=== PATIENT | male | born 1935 | race Caucasian/White ===

== ENCOUNTER → 2016-10-09 | Outpatient (CLI) | payer OTHER ==
--- NOTE | 2016-10-09 16:40 | DX ---
Chest, PA and Lateral History: Follow-up interstitial lung disease, J84.9 Comparison: October 14, 2014 Findings: Bilateral calcified pleural plaques and basilar interstitial lung disease remains, little c hanged.The costophrenic gutters remain sharp. Moderately prominent lung volumes and perihilar bronchi al wall thickening are stable. There is no mass or adenopathy. Heart size remains normal. A calcified lymph node in the left mediastinum is stable and consistent with old granulomatous disease. Degenera tive spurring in the mid and lower thoracic spine is stable. 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 No evidence for mesothelioma .
== END ==
LOC: CIMAGING 11:31
PROVIDERS: ATTEND Internal Medicine Critical Care Medicine
DX: J84.89 Other specified interstitial pulmonary diseases (principal)
CPT/HCPCS: 71020-PO

== ENCOUNTER → 2017-10-24 | Outpatient (CLI) | payer OTHER | LOC: CIMAGING 10:18 | PROVIDERS: ATTEND Internal Medicine Critical Care Medicine | DX: Z13.83 Encounter for screening for respiratory disorder NEC (principal) | CPT/HCPCS: 71046-PO ==

== ENCOUNTER 2018-02-17 11:53 | Inpatient (IN) | payer OTHER ==
[2018-02-17] MEDS ORDERED: NS 1,000 ML IV ONE (12:31)
--- NOTE | 2018-02-17 12:45 | EDPHY ---
HPI/HX/ROS/PE/MDM Narrative: CHIEF COMPLAINT: Dark tarry stool. HPI: This patient is a non-anticoagulated 82 year-old male with history of COPD. He arrives at the request of his primary care provider for evaluation of possible melena. Friday, the patient felt boated after a large meal. Yesterday afternoon around 16:00, he began to feel weak. At 22:00, he had a bowel movement with dark , tarry stools. He has had a pressure sensation in his lower abdomen which began shortly before he went to the bathroom last night. He denies any pain. No vomiting. No history of abdominal surgery. The patient takes daily 81mg ASA but is not otherwise anticoagulated. No fever, chest pain, shortness of breath, or other associated symptoms. REVIEW OF SYSTEMS: Aside from elements discussed in the HPI, a comprehensive 10-point review of systems was reviewed and is negative. PMH: COPD (home oxygen at night or with exertion). MARYBETH. Chronic cough. Hyperlipidemia. History of prostate cancer SOCIAL HISTORY: at bedside. Lives in [place]. Retired. PCP: Dr. Stark. PHYSICAL EXAM: General:Patient is alert, in no acute distress. ENT:Eyes are normal to inspection. ENT inspection normal. Neck: Normal inspection. Full range of motion. Respiratory:No respiratory distress. Breath sounds normal bilaterally. Cardiovascular: Mildly tachycardic, regular rate and rhythm. Strong peripheral pulses. Normal cap refill. Abdomen:The abdomen is nontender to palpation. There are no peritoneal signs. There are normal bowel sounds. Back: Normal to inspection. No tenderness to palpation. Skin: Normal color. No rash. Warm and dry. Extremities: Normal appearance. Full range of motion. Neuro: Oriented x3. Normal motor function. Normal sensory function. ED Course: This 82 y/o male presents at the request of his primary care provider for evaluation of melena onset last night. Plan for labs including CBC, chemistries , coag panel. Plan for CT abdomen/pelvis. WBC elevated at 16,000. 13:[address] Bautista, radiologist. CT abdomen/pelvis negative for diverticulitis. Evidence of 2cm abdominal aortic ulcer. Plan to consult with general surgery. Plan to admit for further management. 13:[address] Left [address] message for Dr. Posadas, general surgeon, via nurse in the OR. He will consult. 13:40 Spoke with hospitalist service. Dr. Mae accepts admission for GI bleed , hematochezia. - Data Points Imaging Results: Imaging Impressions Abdomen CT 02/17/18 12:56 Impression: 1. 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 Recommend vascular surgical consultation. 2. Sigmoid diverticulosis without direct evidence of acute diverticulitis. 3. A subcentimeter hyperattenuating nodule on the left renal cortex representing pertinacious cyst versus solid nodule. Critical findings were communicated by telephone with Dr. Patrick Davis MD at 02/17/2018 13:38 Imaging: Discussed imaging studies w/ call taker Radiologist Laboratory Results: Laboratory Results 02/17/18 12:23 02/17/18 12:23 02/17/18 02/17/18 02/17/18 12:23 12:23 12:23 WBC 16.22 10^3/uL H 10^3/uL (3.80-9.50) RBC 3.72 10^6/uL L 10^6/uL (4.40-6.38) Hgb 12.2 g/dL L g/dL (13.7-17.5) Hct 36.3 % L % (40.0-51.0) MCV 97.6 fL fL (81.5-99.8) MCH 32.8 pg pg (27.9-34.1) MCHC 33.6 g/dL g/dL (32.4-36.7) RDW 13.5 % % (11.5-15.2) Plt Count 246 10^3/uL 10^3/uL (150-400) MPV 9.8 fL fL (8.7-11.7) Neut % (Auto) 67.9 % % (39.3-74.2) Lymph % (Auto) 21.9 % % (15.0-45.0) [place] % (Auto) 8.7 % % (4.5-13.0) Eos % (Auto) 0.6 % % (0.6-7.6) Baso % (Auto) 0.3 % % (0.3-1.7) Nucleat RBC Rel Count 0.0 % % (0.0-0.2) Absolute Neuts (auto) 11.02 10^3/uL H 10^3/uL (1.70-6.50) Absolute Lymphs (auto) 3.56 10^3/uL H 10^3/uL (1.00-3.00) Absolute Monos (auto) 1.41 10^3/uL H 10^3/uL (0.30-0.80) Absolute Eos (auto) 0.09 10^3/uL 10^3/uL (0.03-0.40) Absolute Basos (auto) 0.05 10^3/uL 10^3/uL (0.02-0.10) Absolute Nucleated RBC 0.00 10^3/uL 10^3/uL (0-0.01) Immature Gran % 0.6 % % (0.0-1.1) Immature Gran # 0.09 10^3/uL 10^3/uL (0.00-0.10) PT 14.7 SEC SEC (12.0-15.0) INR 1.13 (0.83-1.16) Sodium 143 mEq/L mEq/L (135-145) Potassium 4.3 mEq/L mEq/L (3.3-5.0) Chloride 110 mEq/L mEq/L (97-110) Carbon Dioxide 19 mEq/l L mEq/l (22-31) Anion Gap 14 mEq/L mEq/L (8-16) BUN 56 mg/dL H mg/dL (7-23) Creatinine 1.0 mg/dL mg/dL (0.7-1.3) Estimated GFR > 60 Glucose 129 mg/dL H mg/dL (70-100) Calcium 8.9 mg/dL mg/dL (8.5-10.4) Medications Given: Discontinued Medications Sodium Chloride (Ns) 1,000 mls @ 0 mls/hr IV EDNOW ONE; Wide Open PRN Reason: Protocol Stop: 02/17/18 12:32 Last Admin: 02/17/18 12:40 Dose: 1,000 mls General Time Seen by Provider: 02/17/18 12:10 Initial Vital Signs: Initial Vital Signs Temperature (C) 36.3 C 02/17/18 12:00 Heart Rate 115 H 02/17/18 12:00 Respiratory Rate 18 02/17/18 12:00 Blood Pressure 113/70 02/17/18 12:00 O2 Sat (%) 95 02/17/18 12:00 O2 Delivery Mode Room Air Allergies/Adverse Reactions: No Known Allergies Allergy (Verified 02/17/18 11:58) Home Medications: Medication Instructions Recorded Simvastatin [Zocor] 20 mg PO HS 05/18/16 Ascorbic Acid [Vitamin C 500 mg 500 mg PO DAILY 02/17/18 (*)] Aspirin [Aspirin 81mg (*)] 162 mg PO DAILY 02/17/18 Herbals/Supplements -Info Only 1 ea PO DAILY 02/17/18 Nasonex 1 spray EACHNARE DAILY 02/17/18 Departure - Departure Disposition: [facility] Inpatient Acute Clinical Impression: Hematochezia GI bleed Qualifiers: GI bleed type/associated pathology: unspecified gastrointestinal hemorrhage type Qualified Code(s): K92.2 - Gastrointestinal hemorrhage, unspecified Condition: Fair Report Scribed for: Patrick Davis Report Scribed by: Nithya Luis Date of Report: 02/17/18 Time of Report: 12:45 Physician Review and Approval Statement: Portions of this note were transcribed by an ED scribe. I personally performed the history, physical exam, and medical decision making; and confirm the accuracy of the information in the transcribed note.
[2018-02-17 12:51] LABS: PLATELET COUNT 246 10^3/uL (150-400)
[2018-02-17 12:58] LABS: INR 1.13 (0.83-1.16); PROTIME(PATIENT) 14.7 SEC (12.0-15.0)
[2018-02-17] MEDS ORDERED: IOPAMIDOL (ISOVUE-300) 100 ML BTL ONE (13:00)
[2018-02-17] MEDS ORDERED: ONDANSETRON DISINTEGRATING 4 MG TAB PO PRN (14:56)
[2018-02-17] MEDS ORDERED: ONDANSETRON 4 MG/2 ML VIAL IVP PRN (14:56)
[2018-02-17] MEDS ORDERED: ACETAMINOPHEN 325 MG TAB PO PRN (14:56)
[2018-02-17] MEDS ORDERED: PANTOPRAZOLE SODIUM 40 MG VIAL IVP ONE (14:59)
--- NOTE | 2018-02-17 15:40 | GHP ---
[f rep st] HISTORY AND PHYSICAL DATE OF ADMISSION: 02/17/2018 CHIEF COMPLAINT: Sent in by PCP for melena. HISTORY OF PRESENT ILLNESS: This is an 82-year-old man with history of lung disease who presents wit h melena. He felt quite poorly yesterday. He went to bed much earlier than normal. He woke up a fe w hours later around 10 o'clock last night and had a large bowel movement. He describes it as dark a nd tarry. His felt that there may be some blood in there. He feels a little bit lightheaded an d some fatigue, no chest pain. He went to see his primary care physician today, did a rectal and fel t as though there was some blood in there, thus sent him to the ER for further workup. He complains of a small amount of abdominal discomfort, which started about the same time that he woke up, and had a bowel movement last night. He has no nausea vomiting. He has never had upper endoscopy before. He had his last colonoscopy about 5 years ago, found that the findings were not significant. He is n ot taking any ibuprofen or Aleve or other NSAIDs. PAST MEDICAL/SURGICAL HISTORY: 1. 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 2. MARYBETH on CPAP. 3. Hyperlipidemia. 4. Prostate cancer, status post surgery. MEDICATIONS: Please see medication reconciliation. ALLERGIES: No known drug allergies. SOCIAL HISTORY: He drinks about 3 glasses of wine a day. He quit smoking about 30 years ago. FAMILY HISTORY: Reviewed and noncontributory. REVIEW OF SYSTEMS: 10-point review of systems is conducted and is negative, except per HPI. PHYSICAL EXAMINATION: VITAL SIGNS: Blood pressure 102/55, heart rate 85, respiration rate 16, satur ating 92% on room air, temperature 36.7. GENERAL: Patient is a pleasant man who is resting comforta smiley in no acute distress. HEENT: Shows him to be mildly pale. CARDIOVASCULAR: Regular rate and rh ythm. Borderline tachycardic. PULMONARY: Lungs clear to auscultation bilaterally. ABDOMEN: Exam with light palpation shows him to be nontender SKIN: No rash. RECTAL: Exam shows him to have some dark stools. NEUROLOGIC: Shows him to be alert and oriented x3. He is moving all extremities. PSYCHIATRIC: Exa m shows normal mood and affect. LABORATORY/IMAGING: White count of 16.2, hemoglobin is 12. INR is 1.1. Bicarb is 19, BUN is 56, gl ucose 129. Abdominal CT which I personally viewed and interpreted, shows an aortic ulcer versus pseudoaneurysm t hat is thrombosed. Otherwise, he has sigmoid diverticulosis, as well as a small renal cortex nodule. Discussed this with Dr. Davis, Dylan, and Cuauhtemoc. Will admit to step-down unit. Dr. Richardson will consult for the aortic ulcer. IMPRESSION/PLAN: 1. Gastrointestinal bleed: Suspect upper given my physical exam findings, his elevated BUN, and his description. We will place him on Protonix. Dr. Ivan has been consulted, plans upper endoscopy elicia orrow. We will trend hemoglobins in the mean time and monitor him closely in the step-down unit. 2. Aortic ulcer/pseudo aneurysm: Dr. Richardson has been consulted. He will see the patient in consulta tion. I am not sure if this is a purely incidental finding as I do not see any evidence of an aorta aortic enteric fistula on CT scan. Will await further review and assessment by Dr. Richardson. 3. Interstitial lung disease: This is due to asbestos. He is on room air. 4. Hyperlipidemia: He is on simvastatin. Given his ulcer, I will check lipids in the morning. /[id number]/MODL
[2018-02-17] MEDS: NS 1,000 ML IV SCH ×2 (16:37→21:26)
--- NOTE | 2018-02-17 18:36 | SOAPPROG ---
DENIA Progress Note Assessment/Plan: Assessment: ALERT, PLEASANT 82 MALE WITH MELENA FOR UNCERTAIN REASON INCIDENTAL FINDING OF SMALL PSEUDOANEURYSM OF INFRARENAL AORTA WHICH IS PARTIALLY THROMBOSED ABD SOFT, NONTENDER, AFEBRILE WBC 16K LAST COLONOSCOPY 5 YRS AGO IMP: PSEUDOANEURYSM WILL NEED REPAIR SOON REASONABLE BUT UNLIKELY TO BE RELATED TO MELENA Plan:ENDOVASCULAR AAA REPAIR WHEN STABLE FROM GI BLEED/ WILL FOLLOW 02/17/18 18:32 Objective: Vital Signs Temp Pulse Resp BP Pulse Ox 36.3 C 91 19 118/79 94 02/17/18 12:00 02/17/18 16:25 02/17/18 16:25 02/17/18 16:25 02/17/18 16:25 Laboratory Results 02/17/18 16:20 02/16/18 02/17/18 02/18/18 05:59 05:59 05:59 Intake Total 120 Output Total 550 Balance -430 PT 14.7 SEC (12.0-15.0) 02/17/18 12:23 INR 1.13 (0.83-1.16) 02/17/18 12:23 ICD10 Worksheet Patient Problems: Problems Problem Status Onset GI bleed Acute Hematochezia Acute
[2018-02-17] MEDS: ATORVASTATIN CALCIUM 10 MG TAB PO SCH (21:26)
[2018-02-17] MEDS: PANTOPRAZOLE SODIUM 40 MG VIAL IVP SCH (21:27)
[2018-02-18] MEDS: PANTOPRAZOLE SODIUM 40 MG VIAL IVP SCH ×3 (04:36→17:06)
[2018-02-18 05:19] LABS: PLATELET COUNT 182 10^3/uL (150-400)
[2018-02-18] MEDS ORDERED: LR 1,000 ML IV ONE (08:12)
[2018-02-18] MEDS ORDERED: PROPOFOL 200 MG/20 ML VIAL ONE (09:20)
[2018-02-18] MEDS ORDERED: NALOXONE HCL 0.4 MG/ML INJ IVP PRN (09:30)
--- NOTE | 2018-02-18 09:30 | PDANEPAE ---
ANE Past Medical History - Pulmonary History Hx Oxygen in Use at Home: Yes O2 in Use at Home (L/minute): 2 Hx Sleep Apnea: Yes Sleep Apnea Screening Result - Last Documented: Positive - Endocrine History Hx Diabetes: No - Chronic Pain History Chronic Pain: No ANE Review of Systems Review of Systems: ANE Patient History - Allergies Allergies/Adverse Reactions: No Known Allergies Allergy (Verified 02/17/18 11:58) - Home Medications Home Medications: Simvastatin [Zocor] 20 mg PO HS 05/18/16 [Last Taken 02/16/18] Ascorbic Acid [Vitamin C 500 mg (*)] 500 mg PO DAILY 02/17/18 [Last Taken Unknown] Aspirin [Aspirin 81mg (*)] 162 mg PO DAILY 02/17/18 [Last Taken 02/16/18] Herbals/Supplements -Info Only 1 ea PO DAILY 02/17/18 [Last Taken Unknown] Nasonex 1 spray EACHNARE DAILY 02/17/18 [Last Taken 02/16/18] - NPO status NPO Since - Liquids (Date): 02/18/18 NPO Since - Liquids (Time): 00:01 NPO Since - Solids (Date): 02/18/18 NPO Since - Solids (Time): 00:01 - Smoking Hx Smoking Status: Former smoker ANE Labs/Vital Signs - Labs Result Diagrams: 02/18/18 05:12 02/18/18 05:12 - Vital Signs Blood Pressure: 127/81 Heart Rate: 85 Respiratory Rate: 18 O2 Sat (%): 95 Height: 177.8 cm Weight: 86.8 kg ANE Physical Exam - Airway Neck exam: FROM, decreased ROM, short neck Mallampati Score: Class 3 Mouth exam: normal dental/mouth exam, small mouth opening - Pulmonary Pulmonary: no respiratory distress, no rales or rhonchi, reduced air movement - Cardiovascular Cardiovascular: regular rate and rhythym, no murmur, rub, or gallop - ASA Status ASA Status: III ANE Anesthesia Plan Anesthesia Plan: MAC
--- NOTE | 2018-02-18 09:44 | GIREPORT ---
[facility] Surgical Services - Endoscopy Department Patient Name: TRAVIS JONES Procedure Date: 02/18/2018 9:06 AM Patient Type: Inpatient Attending MD/ ER Physician: Yuri Ivan MD Procedure: Upper GI endoscopy Indications: Melena Patient Profile: 82 year old male presents for evaluation of black, tarry stools/post hemorrhagic anemia. Providers: Yuri Ivan MD Medicines: Monitored Anesthesia Care Complications: No immediate complications. Estimated blood loss: Minimal. Description of Procedure: After obtaining informed consent, the endoscope was passed under direct vision. Throughout the procedure, the patient's blood pressure, pulse, and oxygen saturations were monitored continuously. The Endoscope was intro duced through the mouth, and advanced to the second part of duodenum. The [facility] er GI endoscopy was accomplished without difficulty. The patient tolerated th e procedure well. Findings: The examined esophagus was normal. A large hiatal hernia was present. Patchy mildly erythematous mucosa was found in the gastric body and in the gastric antrum. Biopsies were taken with a cold forceps for histology. Two non-bleeding cratered duodenal ulcers with no stigmata of bleeding were found in the first portion of the duodenum. The largest lesion was 10 m m in largest dimension. Estimated Blood Loss: Estimated blood loss was minimal. Post Op Diagnosis: - Normal esophagus. - Hiatal hernia. - Erythematous mucosa in the gastric body and antrum. Biopsied. - Multiple non-bleeding duodenal ulcers with no stigmata of bleeding. - Etiology? Suspect bleeding from 2 duodenal ulcers from NSAID use. Recommend full dose PPI BID and no aspirin products. Need to await biop sies for H. pylori but doubt will be positive. Low risk for rebleed. Ok to restart diet. Recommendation: - [facility]. - Use a proton pump inhibitor PO BID. - Await pathology results. - No aspirin, ibuprofen, naproxen, or other non-steroidal anti-inflamma tory drugs. - GI will sign off. - Thank you for allowing me to participate in the care of your patient. Attending Participation: I personally performed the entire procedure. Yuri Ivan MD Yuri Ivan MD 02/18/2018 9:44:18 AM This report has been signed electronicallyYuri Ivan MD Number of Addenda: 0 Note Initiated On: 02/18/2018 9:06 AM [email or web address]
--- NOTE | 2018-02-18 09:50 | GCON ---
[f rep st] CONSULTATION DATE OF CONSULTATION: 02/18/2018 REFERRING PHYSICIAN: Jonh Mae MD REASON FOR CONSULTATION: Melenic stools. CHIEF COMPLAINT: Melenic stools. HISTORY OF PRESENT ILLNESS: Mr. Eubanks is an 82-year-old male with a history of interstitial lung disease, obstructive sleep apnea, on CPAP, who presents to [facility] with complaints of black, tarry stools. Mr. Eubanks states he was doing well until Friday when he suddenly had a bowel movement, which he states was black. He has had several others that have been the same consistency but have been smaller in amount. He does take a daily aspirin. He also had mild complaints of being lightheaded and fatigued. He denies any exacerbating or alleviating factors to his symptoms. He went to his primary care physician, who sent him to the ER for further evaluation. He denies any dysphagia, nausea, vomiting, or bright red blood per rectum. He also denies any chest pain or shortness of breath. He did have a prior colonoscopy 5 years ago and does have a history of polyps. I am being asked by Dr. Mae to evaluate the patient in consultation regarding his melenic stools/post hemorrhagic anemia. PAST MEDICAL HISTORY: 1. Interstitial lung disease. 2. Obstructive sleep apnea. 3. Hyperlipidemia. 4. Prostate cancer. PAST SURGICAL HISTORY: Prostatectomy. MEDICATIONS: Lipitor, ascorbic acid, aspirin, Nasonex. ALLERGIES: NKDA. SOCIAL HISTORY: Drinks on a daily basis. Quit smoking 30 years ago. FAMILY HISTORY: No history of colon cancer, esophageal or stomach cancer. REVIEW OF SYSTEMS: A 14-point comprehensive review of systems was asked. Pertinent positives per HPI. Positive shortness of breath, but stable. PHYSICAL EXAM: VITAL SIGNS: Blood pressure 127/81, temperature 36.5, heart rate 85, respirations 18. GENERAL: Awake, alert, and oriented x3, in no distress. HEENT: Anicteric. Moist mucosa. NECK: No JVD. CARDIOVASCULAR: Regular rate and rhythm. Positive S1. No murmurs, rubs, or gallops appreciated. LUNGS: Clear to auscultation bilaterally. No wheezes, rales, or rhonchi. ABDOMEN: Soft, nontender. Positive bowel sounds. No guarding. No guarding. EXTREMITIES: No clubbing, cyanosis, edema. SKIN: Non icteric. No rash. Lymph: No lymphadenopoathy. NEUROLOGIC: 2 through 12 grossly intact. PSYCH: Normal affect. LABORATORY DATA: Hemoglobin 12. INR 1.1. CT scan: Aortic pseudoaneurysm. ASSESSMENT AND PLAN: 1. Melenic stools- with post hemorrhagic anemia. On nonsteroidal anti- inflammatories. Doubt related to the pseudoaneurysm due to the clinical situation and amount of bleeding. At this time, recommend to proceed with upper endoscopy to delineate the cause of symptoms. The risks, benefits, and alternatives of the procedure was discussed with the patient in detail. The risks of infection, bleeding, perforation, and sedation were discussed. Due to his interstitial lung disease and obstructive sleep apnea, he is at increased risk of sedation and will consult Anesthesia for support. 2. Interstitial lung disease. 3. Aortic aneurysm. 4. Hyperlipidemia. 5. History of prostate cancer. 6. Obstructive sleep apnea. Thank you very much for this consultation. /[id number]/MODL MTDD
[2018-02-18] MEDS ORDERED: LIDOCAINE 2% 5 ML SDV ONE (09:54)
--- NOTE | 2018-02-18 09:55 | POSTANESTH ---
Post Anesthetic Evaluation Cardiovascular Status: Normal, Stable, Similar to Pre-Op Cond Respiratory Status: Normal, Stable, Similar to Pre-op Cond. Level of Consciousness/Mental Status: Can Participate in Eval, Alert and Oriented Pain Control: Adequate, Prn Tx Ordered Nausea/Vomiting Control: Adequate, Prn Tx Ordered Complications Possibly Related to Anesthesia: None Noted
--- NOTE | 2018-02-18 10:17 | PDMN ---
Medical Necessity Medical necessity: Pt meets IP criteria per MD; est los >2 mn for eval/tx of suspected upper GI bleed w/aortic ulcer vs pseudoaneurysm; admit to Step-Down ICU for close monitoring, follow-up labs, GI/Surgery consults, EGD, IVFs & IV Protonix; hx interstitial lung disease, MARYBETH on CPAP & prostate cancer s/p surgery; per H&P & order 02/17/18
[2018-02-18] MEDS: FLUTICASONE NASAL 120 SPRAYS/16 GM MDI EACHNARE SCH (13:37)
--- NOTE | 2018-02-18 15:35 | HOSPPROG ---
Hospitalist Progress Note Assessment/Plan: # UGIB s/p EGD - d/t asa inudced ulcers likely, low risk for rebleed - protonix 40 po bid - stop asa # ABLA d/t above - no transfusion needed # penetrating aortic ulcer with pseudoaneurysm - plan percutaneous stent on Friday by Dr Yanez # ILD d/t asbestos # HLD - on simva - LDL low Objective: Vital Signs Temp Pulse Resp BP Pulse Ox 36.8 C 77 14 135/78 H 95 02/18/18 11:09 02/18/18 11:09 02/18/18 11:09 02/18/18 11:09 02/18/18 11:09 Laboratory Results 02/18/18 11:00 02/18/18 05:12 02/17/18 02/18/18 02/19/18 05:59 05:59 05:59 Intake Total 1048 600 Output Total 550 0 Balance 498 600 PT 14.7 SEC (12.0-15.0) 02/17/18 12:23 INR 1.13 (0.83-1.16) 02/17/18 12:23 EGD reviewed discussed at length with patient and - Time Spent With Patient Time Spent with Patient: greater than 35 minutes Time Spent with Patient: Greater than 35 minutes spent on this patients care, greater than 50% of time spent counseling, educating, and coordinating care regarding the above mentioned plan. - Physical Exam Constitutional: no apparent distress, appears nourished Eyes: anicteric sclera Ears, Nose, Mouth, Throat: hearing normal ICD10 Worksheet Patient Problems: Problems Problem Status Onset GI bleed Acute Hematochezia Acute
[2018-02-18] MEDS ORDERED: RED WINE 120 ML BOTTLE PO SCH (18:00)
[2018-02-18] MEDS: ATORVASTATIN CALCIUM 10 MG TAB PO SCH (20:36)
[2018-02-18] MEDS: PANTOPRAZOLE SODIUM 40 MG TAB PO SCH (20:36)
[2018-02-19] MEDS: diphenhydrAMINE 25 MG CAP PO PRN ×2 (00:18→20:47)
[2018-02-19] MEDS: FLUTICASONE NASAL 120 SPRAYS/16 GM MDI EACHNARE SCH (08:08)
[2018-02-19] MEDS: PANTOPRAZOLE SODIUM 40 MG TAB PO SCH ×2 (08:08→20:45)
--- NOTE | 2018-02-19 09:37 | ASMTCASEMG ---
Living Arrangements What is your living Answers: With Spouse arrangement? Who do you live with? Type Of Residence What kind of residence do Answers: House you live in? Discharge Plan Comments Coordination Status Comments Notes: Patient is an 82yo male with a hx of lung disease who presents with melena. Patient was admitted for a gastrointestinal bleed, aortic ulcer, interstitial lung disease, and hyperlipidemia. No therapies are ordered at this time. D/C plan TBD. CM will follow. Date Signed: 02/19/2018 09:37 AM Electronically Signed By:Asmita Castaneda LCSW
--- NOTE | 2018-02-19 10:09 | HOSPPROG ---
Hospitalist Progress Note Assessment/Plan: # UGIB s/p EGD - d/t asa induced ulcers likely, low risk for rebleed - protonix 40 po bid - stop asa - melena this am likely residual from previous bleed - will recheck H/H tomorrow am # ABLA d/t above - no transfusion needed - hgb slightly lower today - recheck tomorrow am # penetrating aortic ulcer with pseudoaneurysm - plan percutaneous stent on Friday by Dr Yanez - NPO p midnight # ILD d/t asbestos # HLD - on simva - LDL low Subjective: reports an episode of melena this am Objective: Vital Signs Temp Pulse Resp BP Pulse Ox 36.7 C 77 14 119/82 H 92 02/19/18 07:45 02/19/18 07:45 02/19/18 07:45 02/19/18 07:45 02/19/18 07:45 Laboratory Results 02/19/18 06:00 02/18/18 05:12 02/18/18 02/19/18 02/20/18 05:59 05:59 05:59 Intake Total 1048 1703 Output Total 550 0 Balance 498 1703 PT 14.7 SEC (12.0-15.0) 02/17/18 12:23 INR 1.13 (0.83-1.16) 02/17/18 12:23 - Physical Exam Constitutional: no apparent distress, appears nourished Cardiovascular: regular rate and rhythym, no murmur, rub, or gallop Respiratory: no respiratory distress, no rales or rhonchi, clear to auscultation Gastrointestinal: soft, non-tender abdomen, no palpable masses ICD10 Worksheet Patient Problems: Problems Problem Status Onset GI bleed Acute Hematochezia Acute
--- NOTE | 2018-02-19 17:53 | SOAPPROG ---
DENIA Progress Note Assessment/Plan: Assessment: ALERT, PLEASANT 82 MALE WITH MELENA FOR UNCERTAIN REASON INCIDENTAL FINDING OF SMALL PSEUDOANEURYSM OF INFRARENAL AORTA WHICH IS PARTIALLY THROMBOSED ABD SOFT, NONTENDER, AFEBRILE WBC 16K LAST COLONOSCOPY 5 YRS AGO IMP: PSEUDOANEURYSM WILL NEED REPAIR SOON REASONABLE BUT UNLIKELY TO BE RELATED TO MELENA Plan:ENDOVASCULAR AAA REPAIR WHEN STABLE FROM GI BLEED/ WILL FOLLOW 02/17/18 18:32 02/19/18 17:53 Stable/no further bleeding/Pro should proceed with endovascular stent graft in the a.m. Objective: Vital Signs Temp Pulse Resp BP Pulse Ox 36.9 C 76 15 79/58 L 95 02/19/18 16:00 02/19/18 16:00 02/19/18 16:00 02/19/18 16:00 02/19/18 16:00 Laboratory Results 02/19/18 06:00 02/18/18 05:12 02/18/18 02/19/18 02/20/18 05:59 05:59 05:59 Intake Total 1048 1703 Output Total 550 0 Balance 498 1703 PT 14.7 SEC (12.0-15.0) 02/17/18 12:23 INR 1.13 (0.83-1.16) 02/17/18 12:23 ICD10 Worksheet Patient Problems: Problems Problem Status Onset GI bleed Acute Hematochezia Acute
[2018-02-19] MEDS: BEER 1 EACH EA PO SCH (18:14)
[2018-02-19] MEDS: ATORVASTATIN CALCIUM 10 MG TAB PO SCH (20:45)
--- NOTE | 2018-02-19 22:37 | SOAPPROG ---
[facility] Progress Note Assessment/Plan: Assessment: Plan: 02/19/18 05:37 A/P 1. Duodenal ulcer- clean based. Low chance for rebleed. Recommend No NSAIDs and PPI BID for 12 weeks than QD. GI will sign off. Please call if needed. Subjective: cc: Follow up duodenal ulcer Had 2 small BMs. No complaints of pain Objective: Vital Signs Temp Pulse Resp BP Pulse Ox 36.9 C 76 15 79/58 L 95 02/19/18 16:00 02/19/18 16:00 02/19/18 16:00 02/19/18 16:00 02/19/18 16:00 Laboratory Results 02/19/18 06:00 02/18/18 05:12 02/18/18 02/19/18 02/20/18 05:59 05:59 05:59 Intake Total 1048 1703 850 Output Total 550 0 Balance 498 1703 850 PT 14.7 SEC (12.0-15.0) 02/17/18 12:23 INR 1.13 (0.83-1.16) 02/17/18 12:23 Physical Exam - Physical Exam General Appearance: alert, no apparent distress EENT: No scleral icterus (R), No scleral icterus (L) Respiratory: lungs clear, normal breath sounds, No crackles, No rales, No rhonchi Cardiac/Chest: regular rate, rhythm, No bradycardia, No tachycardia Abdomen: non-tender, soft, No guarding, No rebound Skin: normal color, warm/dry Neuro/Psych: normal mood/affect, oriented x 3, 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
[2018-02-20] MEDS ORDERED: LR 1,000 ML IV ONE ×2 (08:25→13:44)
[2018-02-20] MEDS ORDERED: ceFAZolin 2 GM/DEXTROSE 100 ML IV ONE (08:25)
--- NOTE | 2018-02-20 08:25 | HOSPPROG ---
Hospitalist Progress Note Assessment/Plan: #Acute blood loss anemia -due to duodenal ulcers from NSAIDs, -H pylori positive. Triple-therapy treatment x 2 weeks #Ulceration/pseudoaneurysm of infrarenal aorta -percutaneous stenting done today by Dr. Yanez -lay flat for 6 hrs #HLD: hold statin #Diet: regular #DVT ppx: SCDs #Disp: cont inpatient admission for AAA repair, labs and monitoring in ICU this evening Subjective: "hungry" Objective: Vital Signs Temp Pulse Resp BP Pulse Ox 36.9 C 74 18 125/65 H 93 02/19/18 16:00 02/20/18 07:44 02/20/18 07:44 02/20/18 07:44 02/20/18 07:44 Laboratory Results 02/20/18 07:40 02/18/18 05:12 02/19/18 02/20/18 02/21/18 05:59 05:59 05:59 Intake Total 1703 1150 Output Total 0 Balance 1703 1150 PT 14.7 SEC (12.0-15.0) 02/17/18 12:23 INR 1.13 (0.83-1.16) 02/17/18 12:23 - Time Spent With Patient Time Spent with Patient: greater than 35 minutes Time Spent with Patient: Greater than 35 minutes spent on this patients care, greater than 50% of time spent counseling, educating, and coordinating care regarding the above mentioned plan. - Physical Exam Constitutional: no apparent distress Eyes: PERRL Ears, Nose, Mouth, Throat: moist mucous membranes Cardiovascular: regular rate and rhythym Respiratory: no respiratory distress Gastrointestinal: soft, non-tender abdomen Musculoskeletal: other (right groin site dressed CDI, palpable pulse) Neurologic: AAOx3, CN II-XII Intact Psychiatric: interacting appropriately ICD10 Worksheet Patient Problems: Problems Problem Status Onset GI bleed Acute Hematochezia Acute
[2018-02-20] MEDS: FLUTICASONE NASAL 120 SPRAYS/16 GM MDI EACHNARE SCH (08:31)
[2018-02-20] MEDS: PANTOPRAZOLE SODIUM 40 MG TAB PO SCH ×2 (08:31→21:01)
[2018-02-20 08:57] LABS: PLATELET COUNT 206 10^3/uL (150-400)
--- NOTE | 2018-02-20 08:57 | CPEKG ---
Heart Rate: 64 RR Interval: 938 P-R Interval: 176 QRSD Interval: 148 QT Interval: 452 QTC Interval: 467 P [place]: 23 QRS [place]: -7 T Wave [place]: -16 EKG Severity - ABNORMAL ECG - EKG Impression: SINUS RHYTHM EKG Impression: RIGHT BUNDLE BRANCH BLOCK EKG Impression: artifact Electronically Signed By: Marquez Roberts 23-Feb-2018 02:35:55
[2018-02-20 09:02] LABS: INR 1.05 (0.83-1.16); PROTIME(PATIENT) 13.9 SEC (12.0-15.0)
--- NOTE | 2018-02-20 13:40 | PDANEPAE ---
ANE Past Medical History - Pulmonary History Hx Oxygen in Use at Home: Yes O2 in Use at Home (L/minute): 2 Hx Sleep Apnea: Yes Sleep Apnea Screening Result - Last Documented: Positive - Endocrine History Hx Diabetes: No - Chronic Pain History Chronic Pain: No ANE Review of Systems Review of Systems: ANE Patient History - Allergies Allergies/Adverse Reactions: No Known Allergies Allergy (Verified 02/17/18 11:58) - Home Medications Home Medications: Simvastatin [Zocor] 20 mg PO HS 05/18/16 [Last Taken 02/16/18] Ascorbic Acid [Vitamin C 500 mg (*)] 500 mg PO DAILY 02/17/18 [Last Taken Unknown] Aspirin [Aspirin 81mg (*)] 162 mg PO DAILY 02/17/18 [Last Taken 02/16/18] Herbals/Supplements -Info Only 1 ea PO DAILY 02/17/18 [Last Taken Unknown] Nasonex 1 spray EACHNARE DAILY 02/17/18 [Last Taken 02/16/18] - NPO status NPO Since - Liquids (Date): 02/18/18 NPO Since - Liquids (Time): 00:01 NPO Since - Solids (Date): 02/18/18 NPO Since - Solids (Time): 00:01 - Smoking Hx Smoking Status: Former smoker ANE Labs/Vital Signs - Labs Result Diagrams: 02/20/18 07:40 02/20/18 08:40 - Vital Signs Blood Pressure: 138/81 Heart Rate: 76 Respiratory Rate: 16 O2 Sat (%): 92 Height: 177.8 cm Weight: 86.8 kg ANE Physical Exam - Airway Mallampati Score: Class 2 - ASA Status ASA Status: III ANE Anesthesia Plan Anesthesia Plan: general endotracheal anesthesia
[2018-02-20] MEDS ORDERED: MIDAZOLAM 2 MG/2 ML VIAL ONE (14:06)
[2018-02-20] MEDS ORDERED: PROPOFOL 200 MG/20 ML VIAL ONE (14:06)
[2018-02-20] MEDS ORDERED: fentaNYL 100 MCG/2 ML INJ ONE (14:06)
[2018-02-20] MEDS ORDERED: METOCLOPRAMIDE 10 MG/2 ML VIAL ONE (14:07)
[2018-02-20] MEDS ORDERED: ONDANSETRON 4 MG/2 ML VIAL ONE (14:07)
[2018-02-20] MEDS ORDERED: LIDOCAINE 2% JELLY 5 ML TUBE ONE (14:08)
[2018-02-20] MEDS ORDERED: PHENYLEPHRINE HCL 100 MCG/ML SYR ONE (14:31)
[2018-02-20] MEDS ORDERED: HEPARIN 10,000 UNIT/10 ML MDV (1,000 UNIT/ML) ONE (14:53)
[2018-02-20] MEDS ORDERED: IOPAMIDOL (ISOVUE-300) 100 ML BTL ONE ×2 (15:14→15:42)
[2018-02-20] MEDS ORDERED: LIDOCAINE 1% 300 MG/30 ML SDV ONE (15:14)
[2018-02-20] MEDS ORDERED: PROTAMINE SULFATE 50 MG/5 ML VIAL IVP ONE (15:30)
--- NOTE | 2018-02-20 15:39 | SOAPPROG ---
[facility] Progress Note Assessment/Plan: Assessment: ALERT, PLEASANT 82 MALE WITH MELENA FOR UNCERTAIN REASON INCIDENTAL FINDING OF SMALL PSEUDOANEURYSM OF INFRARENAL AORTA WHICH IS PARTIALLY THROMBOSED ABD SOFT, NONTENDER, AFEBRILE WBC 16K LAST COLONOSCOPY 5 YRS AGO IMP: PSEUDOANEURYSM WILL NEED REPAIR SOON REASONABLE BUT UNLIKELY TO BE RELATED TO MELENA Plan:ENDOVASCULAR AAA REPAIR WHEN STABLE FROM GI BLEED/ WILL FOLLOW 02/17/18 18:32 02/19/18 17:53 Stable/no further bleeding/Pro should proceed with endovascular stent graft in the a.m. 02/20/18 15:38 Hematocrit 27/vital signs stable/abdomen soft nontender/still some melena but vital signs stable Endovascular stent placement today per Dr. Yanez Objective: Vital Signs Temp Pulse Resp BP Pulse Ox 36.9 C 76 16 138/81 H 92 02/20/18 13:40 02/20/18 13:40 02/20/18 13:40 02/20/18 13:40 02/20/18 13:40 Laboratory Results 02/20/18 07:40 02/20/18 08:40 02/19/18 02/20/18 02/21/18 05:59 05:59 05:59 Intake Total 1703 1150 Output Total 0 Balance 1703 1150 PT 13.9 SEC (12.0-15.0) 02/20/18 08:40 INR 1.05 (0.83-1.16) 02/20/18 08:40 ICD10 Worksheet Patient Problems: Problems Problem Status Onset GI bleed Acute Hematochezia Acute
[2018-02-20] MEDS ORDERED: NALOXONE HCL 0.4 MG/ML INJ IVP PRN (15:54)
[2018-02-20] MEDS ORDERED: fentaNYL 100 MCG/2 ML INJ IVP PRN (15:54)
[2018-02-20] MEDS ORDERED: LR 500 ML IV PRN (15:54)
[2018-02-20] MEDS ORDERED: ONDANSETRON 4 MG/2 ML VIAL IVP PRN (15:54)
[2018-02-20] MEDS ORDERED: PROMETHAZINE HCL 25 MG/ML INJ IVP PRN (15:54)
--- NOTE | 2018-02-20 15:55 | POSTANESTH ---
Post Anesthetic Evaluation Cardiovascular Status: Normal, Stable Respiratory Status: Normal, Stable Level of Consciousness/Mental Status: Can Participate in Eval Pain Control: Adequate, Prn Tx Ordered Nausea/Vomiting Control: Adequate, Prn Tx Ordered Complications Possibly Related to Anesthesia: None Noted
[2018-02-20] MEDS ORDERED: LACTULOSE 20 GM/30 ML UDCUP PO PRN (16:07)
[2018-02-20] MEDS ORDERED: OXYCODONE/APAP 5/325 TAB PO PRN (16:07)
[2018-02-20] MEDS ORDERED: MAGNESIUM HYDROXIDE 30 ML UDCUP PO PRN (16:07)
[2018-02-20] MEDS ORDERED: BISACODYL 10 MG SUPP PR PRN (16:07)
[2018-02-20] MEDS ORDERED: POLYETHYLENE GLYCOL 3350 17 GM PKT PO PRN (16:07)
[2018-02-20] MEDS ORDERED: NS 1,000 ML IV SCH (16:15)
[2018-02-20] MEDS: BEER 1 EACH EA PO SCH (18:45)
--- NOTE | 2018-02-20 19:10 | PDRADPN ---
Radiology Procedure Note Date of Procedure: 02/20/18 Radiologist: Josephine Yanez Anesthesiologist: DR. PANTOJA Anesthesia: GET(General Endotracheal) Pre-op Diagnosis: PENETRATING ULCER Post-op Diagnosis: SAME Indication: RISK OF RUPTURE Procedure: ENDOGRAFT REPAIR Finding(s): 3 CUFFS PLACED Inf/Abcess present in the surg proc area at time of surgery?: No EBL: Minimal Complications: NONE
--- NOTE | 2018-02-20 19:11 | SOAPPROG ---
[facility] Progress Note Assessment/Plan: Assessment: Post endograft penetrating aortic ulcer repair. Plan: 1. Can turn side to side till 9pm 2. If no groin issues tomorrow with getting out of bed, may be D/C from IR standpoint. Thank You! 02/20/18 19:11 Subjective: NO MAJOR COMPLAINTS Objective: Vital Signs Temp Pulse Resp BP Pulse Ox 36.6 C 78 18 150/74 H 97 02/20/18 16:51 02/20/18 18:00 02/20/18 18:00 02/20/18 18:00 02/20/18 18:00 Laboratory Results 02/20/18 07:40 02/20/18 08:40 02/19/18 02/20/18 02/21/18 05:59 05:59 05:59 Intake Total 1703 1150 1250 Output Total 0 10 Balance 1703 1150 1240 PT 13.9 SEC (12.0-15.0) 02/20/18 08:40 INR 1.05 (0.83-1.16) 02/20/18 08:40 RT GROIN WITHOUT HEMATOMA. PULSES NORMAL. ICD10 Worksheet Patient Problems: Problems Problem Status Onset GI bleed Acute Hematochezia Acute
[2018-02-20] MEDS: CLARITHROMYCIN 500 MG TAB PO SCH (21:01)
[2018-02-20] MEDS: ATORVASTATIN CALCIUM 10 MG TAB PO SCH (21:02)
[2018-02-20] MEDS: SENNOSIDES/DOCUSATE SODIUM TAB PO SCH (21:03)
[2018-02-20] MEDS: diphenhydrAMINE 25 MG CAP PO PRN (21:10)
[2018-02-21 06:08] LABS: PLATELET COUNT 196 10^3/uL (150-400)
[2018-02-21] MEDS: SENNOSIDES/DOCUSATE SODIUM TAB PO SCH (08:09)
[2018-02-21] MEDS: PANTOPRAZOLE SODIUM 40 MG TAB PO SCH (08:09)
[2018-02-21] MEDS: CLARITHROMYCIN 500 MG TAB PO SCH (08:09)
[2018-02-21] MEDS: FLUTICASONE NASAL 120 SPRAYS/16 GM MDI EACHNARE SCH (08:10)
[2018-02-21 09:19] VITALS: BP 123/79
--- NOTE | 2018-02-21 10:37 | GDS ---
[f rep st] DISCHARGE SUMMARY DISCHARGE DIAGNOSES: 1. Acute blood loss anemia. 2. Aortic ulceration/pseudo aneurysm status post repair. 3. Hyperlipidemia. 4. Helicobacter pylori. 5. 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 6. Obstructive sleep apnea on continuous positive airway pressure. 7. Hyperlipidemia. 8. History of prostate cancer. HISTORY OF PRESENT ILLNESS: An 82-year-old male with history of ILD, presenting with melena. He felt a little lightheaded and fatigued, but no chest pain. He went to see his PCP. They did a rectal, thought there was some blood, thus he was sent to the ER. He had some mild abdominal discomfort. CT showed a penetrating atherosclerotic ulceration, infrarenal abdominal aorta, aorta with a 2.2 cm pseudoaneurysm. HOSPITAL COURSE BY PROBLEM: 1. Acute blood loss anemia: due 2 duodenal ulcers from NSAID use. Positive for H pylori. Will receive a triple therapy treatment. He had no NSAIDs. Continue PPI twice daily. 2. Penetrating aortic ulcer: Dr. Yanez performed repair with 3 aortic cuffs, covering the distal abdominal aorta and ulcer. He should follow up with him in 1 week. 3. Hyperlipidemia: Statin. 4. Disposition: Patient is stable for discharge home. NEW MEDICATIONS: 1. Amoxicillin 1 g twice daily. 2. Clindamycin 500 mg twice daily. 3. Protonix 40 mg twice daily. FOLLOWUP: 1. PCP. 2. Dr. Yanez. PHYSICAL EXAMINATION: VITAL SIGNS: Today, temperature afebrile, blood pressure 123/70, heart rate in 90s, respirations 20. 88%-94% on room air. GENERAL: Well appearing, sitting up in bed, no acute distress. HEENT: PERRLA. Moist mucous membranes. CV: Regular rate and rhythm. LUNGS: Clear. ABDOMEN : Soft, nontender, nondistended. Positive bowel sounds. MUSCULOSKELETAL: Femoral procedural site dressed with mild sanguinous discharge. Palpable femoral and pedal pulses. NEUROLOGIC: 2 through 12 intact. PSYCH: Alert and oriented x3. Time spent on discharge: Greater than 30 minutes counseling patient on H pylori treatment, followup, and coordination of discharge. /[id number]/MODL MTDD
--- NOTE | 2018-02-25 11:11 | GCON ---
[f rep st] CONSULTATION DATE OF CONSULTATION: 02/17/2018 Patient is an 82-year-old male who is quite pleasant was admitted for melena of uncertain etiology. He was also found to have an incidental small perforation ulcer of his aorta creating a small saccula r aneurysm which appears to be partially thrombosed. I was consulted for evaluation for the aneurysm and any chance of involvement as the cause of the melena. He has had no previous aortic surgery. T he bleeding was definitely melanotic. There were no emesis and no bright red blood seen. A CT scan does not reveal any obvious connection to the duodenum or other loops of bowel from this small pseudo aneurysm. He has not any previous abdominal surgery. ALLERGIES: None. 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 REVIEW OF SYSTEMS: Reveals a 10-point review which is negative except related to HPI. PHYSICAL EXAMINATION: GENERAL: An alert 82-year-old male in no acute distress, afebrile. HEAD/NECK : Reveals no icterus, adenopathy, or oral lesions. Neck is supple without bruits or thyromegaly. C HEST: Clear. CARDIAC: Regular rhythm without murmurs. ABDOMEN: Soft and nontender without masses . There are no palpable aneurysms. No hernias. GENITALIA: Normal. EXTREMITIES: Benign with full range of motion, full pulses. NEUROLOGIC: Physiologic and symmetric. PSYCH: Reveals him to be al ert, oriented, cooperative. MEDICATIONS: Include Zocor, aspirin and supplements. IMPRESSION: Pseudoaneurysm which appears to be quite dangerous but asymptomatic. This will require endograft stenting or surgical repair. On the other hand I do not think it relates to his melena wit h no obvious connection to the GI tract and he will need his workup for his GI bleed prior to his ane urysm repair. Risks and options have been fully discussed with the patient. /[id number]/MODL
== END 2018-02-21 10:44 | disposition home or self-care (01) | DRG 219 ==
LOC: F2N 16:05 → F3E 02-20 11:54 → F2N 02-20 16:00
PROVIDERS: ADMIT Student in an Organized Health Care Education/Training Program; ATTEND Internal Medicine
PROC: 0DB68ZX Excision of Stomach, Via Natural or Artificial Opening Endoscopic, Diagnostic (ICD-10-PCS; 2018-02-18)
PROC: 02VW3EZ Restriction of Thoracic Aorta, Descending with Branched or Fenestrated Intraluminal Device, One or Two Arteries, Percutaneous Approach (ICD-10-PCS; principal; 2018-02-20)
DX: I71.4 Abdominal aortic aneurysm, without rupture (principal); K26.4 Chronic or unspecified duodenal ulcer with hemorrhage; T39.395A Adverse effect of other nonsteroidal anti-inflammatory drugs [NSAID], initial encounter; B96.81 Helicobacter pylori [H. pylori] as the cause of diseases classified elsewhere; D62 Acute posthemorrhagic anemia; J61 Pneumoconiosis due to asbestos and other mineral fibers; J84.89 Other specified interstitial pulmonary diseases; I70.0 Atherosclerosis of aorta; E78.5 Hyperlipidemia, unspecified; G47.33 Obstructive sleep apnea (adult) (pediatric); Z85.46 Personal history of malignant neoplasm of prostate; Z79.82 Long term (current) use of aspirin
CPT/HCPCS: C1725; C1769; C1874; C1893; C1894; J0690; J1644; J2250; J2370; J2405; J2704; J2720; J2765; J3010; Q9967

== ENCOUNTER → 2019-01-05 | Outpatient (CLI) | payer OTHER ==
[~2019-01-05] MED LIST: IOPAMIDOL (ISOVUE 370) 100 ML BTL IV ONE
== END ==
LOC: CIMAGING 08:25
PROVIDERS: ATTEND Radiology Diagnostic Radiology
DX: I71.4 Abdominal aortic aneurysm, without rupture (principal); T82.898A Other specified complication of vascular prosthetic devices, implants and grafts, initial encounter
CPT/HCPCS: 74174; Q9967